=== PATIENT | female | born 1980 | race Two or more races ===

== ENCOUNTER 2018-03-07 17:13 | Emergency (ER) | payer SELFPAY ==
[2018-03-07 17:19] VITALS: BP 172/110
[2018-03-07] MEDS ORDERED: HYDROCHLOROTHIAZIDE 12.5 MG CAPSULE PO ONE (17:39)
[2018-03-07] MEDS ORDERED: LISINOPRIL 10 MG TABLET PO ONE (17:39)
[2018-03-07] MEDS ORDERED: ASPIRIN 81 MG TABLET, CHEWABLE PO ONE (17:40)
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
== END 2018-03-07 18:09 | disposition home or self-care (01) ==
LOC: ER 17:13
DX: I10 Essential (primary) hypertension (principal); F17.210 Nicotine dependence, cigarettes, uncomplicated
CPT/HCPCS: 99283